=== PATIENT | female | born 1975 | race Caucasian/White ===

== ENCOUNTER 2018-12-12 09:20 | Day surgery (SDC) | payer MEDICARE, MEDICAID ==
[2018-12-10 16:34] LABS: BASOPHILS # (AUTO) 0.1 X10'3 (0-0.2); BASOPHILS % (AUTO) 0.9 % (0-1); EOSINOPHILS # (AUTO) 0.1 X10'3 (0-0.9); EOSINOPHILS % (AUTO) 1.2 % (0-6); LYMPHOCYTES # (AUTO) 1.4 X10'3 (1.1-4.8); MEAN CORPUSCULAR HEMOGLOBIN 26.1 PG (27.0-31.0); MEAN CORPUSCULAR HGB CONC 32.5 g/dL (33.0-36.5); MEAN CORPUSCULAR VOLUME 80.5 FL (78-98); MEAN PLATELET VOLUME 7.8 FL (7.4-10.4); MONOCYTES # (AUTO) 0.6 X10'3 (0-0.9); MONOCYTES % (AUTO) 9.7 % (2-12); NEUTROPHILS # (AUTO) 4.2 X10'3 (1.8-7.7); NEUTROPHILS % (AUTO) 66.2 % (42-75); PRE OP HEMATOCRIT 35.7 % (35.0-45.0); PRE OP HEMOGLOBIN 11.6 g/dL (12.0-16.0); PRE OP PLATELET COUNT 316 X10'3 (140-440); RED BLOOD COUNT 4.44 X10'6 (4.20-5.60); RED CELL DISTRIBUTION WIDTH 18.3 % (11.5-14.5)
[2018-12-10 16:45] LABS: ALBUMIN 3.5 G/DL (3.4-5.0); ALBUMIN/GLOBULIN RATIO 0.9 (1.1-1.5); ALKALINE PHOSPHATASE 77 IU/L (46-116); BLOOD UREA NITROGEN 11 MG/DL (7-18); BUN/CREATININE RATIO 17.7 (6.6-38.0); CALCIUM 8.9 MG/DL (8.5-10.1); CHLORIDE 103 MMOL/L (99-107); CREATININE 0.62 MG/DL (0.40-0.90); PRE OP ALT 16 U/L (30-65); PRE OP ANION GAP 8 (8-16); PRE OP AST 14 U/L (10-37); PRE OP BILIRUB, TOTAL 0.3 MG/DL (0.0-1.0); PRE OP GLUCOSE 103 MG/DL (70-104); PRE OP SODIUM 138 MMOL/L (135-145); TOTAL PROTEIN 7.2 G/DL (6.4-8.2); eGFR > 90 ML/MIN
[2018-12-10 16:46] LABS: PRE OP PROTIME 9.3 SECONDS (9.0-12.0)
[2018-12-10 17:06] LABS: PRE OP POTASSIUM 3.3 MMOL/L (3.4-5.1)
[2018-12-10 17:38] LABS: PRE OP INR 0.9 INR
[~2018-12-12] VITALS: Ht 160 cm; Wt 63.5 kg
[~2018-12-12 09:20] MED LIST: BUPIVAcaine/PF 2.5mg/ml (0.25%) 10ml vial ONE; BUPR150T8 PO; HYDR-4353 PO; IXEK80SY3 SQ; LEVO150T62 PO; MELA3TAB64 PO; PANT-47 PO; ZOLP10TA5 PO; cefazolin/dext.iso 2gm/100 ML IV ONE; famotidine 20mg tablet PO ONE; ringers solution, lacted 1,000 ML IV SCH
[2018-12-12 10:00] VITALS: BP 110/82
[2018-12-12] MEDS ORDERED: LIDOcaine 0.5% (5mg/ml) 50ml vial ONE (10:51)
[2018-12-12] MEDS ORDERED: ringers solution, lacted 1,000 ML IV SCH (13:00)
[2018-12-12] MEDS ORDERED: meperidine/PF 25mg/ml syringe IV PRN ×3 (13:00)
[2018-12-12] MEDS ORDERED: proCHLORperazine 10 MG/2 ml inj IV PRN (13:00)
[2018-12-12] MEDS ORDERED: ondansetron/PF 4mg/2ml inj IV PRN (13:00)
[2018-12-12] MEDS ORDERED: fentaNYL/PF 50MCG/1 ML 2ML syringe ONE (13:11)
[2018-12-12] MEDS ORDERED: midazolam 2 mg/2 ml injection ONE ×3 (13:11→13:25)
[2018-12-12] MEDS ORDERED: propofol inj 20 ML IV ONE (13:48)
[2018-12-12 14:00] VITALS: BP 115/79
--- NOTE | 2018-12-12 14:00 | NUR ---
Received from OR via BED, accompanied by Anesthesiologist DR CHAVARRIA and report given by Anesthesiolgist. PATIENT A&OX4, DENIES PAIN, V/S WNL, NEUROVASCULAR CHECKS INTACT, 20G PIV RUE, SCD ON, DRESSING TO LEFT FINGER CDI ELEVATED WITH ICEBAG APPLIED.
[2018-12-12 14:10] VITALS: BP 121/76
[2018-12-12 14:20] VITALS: BP 124/73
[2018-12-12 14:30] VITALS: BP 127/74
--- NOTE | 2018-12-12 14:30 | NUR ---
PATIENT A&OX4, DENIES PAIN, V/S WNL, NEUROVASCULAR CHECKS INTACT, 20G PIV RUE D/C, SCD OFF, DRESSING TO LEFT MIDDLE FINGER CDI ELEVATED WITH ICEBAG APPLIED. I HAVE REVIEWED D/C INSTRUCTIONS WITH PATIENT AND FAMILY AND THEY HAVE VERBALIZED UNDERSTANDING. PATIENT D/C HOME WITH ALL BELONGINGS AND FAMILY GAVE TRANSPORT HOME.
== END 2018-12-12 14:30 | disposition home or self-care (01) ==
LOC: PAS 09:20
PROVIDERS: ATTEND Orthopaedic Surgery Hand Surgery
DX: M25.342 Other instability, left hand (principal); M20.012 Mallet finger of left finger(s); G47.00 Insomnia, unspecified; F41.9 Anxiety disorder, unspecified; L40.59 Other psoriatic arthropathy; Z88.5 Allergy status to narcotic agent; Z79.899 Other long term (current) drug therapy; Z98.890 Other specified postprocedural states; Z72.89 Other problems related to lifestyle; Z93.0 Tracheostomy status; Z79.01 Long term (current) use of anticoagulants
CPT/HCPCS: 26433; 36415; 80053; 82948; 85025; 85610; 85730; 93005; C1713; J2001; J2250; J2704; J3010; J3490; A4215; J7120

== ENCOUNTER 2024-02-13 08:25 | Day surgery (SDC) | payer MEDICARE, MEDICAID ==
[~2024-02-13] VITALS: Ht 160 cm; Wt 61.4 kg
[~2024-02-13 08:25] MED LIST changes: -BUPIVAcaine/PF 2.5mg/ml (0.25%) 10ml vial ONE; -BUPR150T8 PO; +HYDR-3686 PO; +HYDR-3972 PO; -HYDR-4353 PO; -LEVO150T62 PO; -MELA3TAB64 PO; -PANT-47 PO; +PANT40TA54 PO; -ZOLP10TA5 PO; -cefazolin/dext.iso 2gm/100 ML IV ONE; -famotidine 20mg tablet PO ONE; +levothyroxine; -ringers solution, lacted 1,000 ML IV SCH
[2024-02-13 08:35] VITALS: BP 152/107; PULSE 85; RESP 20
[2024-02-13] MEDS ORDERED: fentaNYL/PF 50MCG/1 ML 2ML syringe ONE (08:48)
[2024-02-13] MEDS ORDERED: propofol inj 20 ML IV ONE (08:49)
[2024-02-13] MEDS ORDERED: midazolam 1 mg/ML 2ml injection ONE (08:49)
[2024-02-13 09:40] VITALS: BP 120/85; PULSE 66; RESP 10; O2SAT 100
[2024-02-13 09:50] VITALS: BP 135/92; PULSE 62; RESP 10; O2SAT 100
[2024-02-13 10:00] VITALS: BP 141/92; PULSE 59; RESP 14; O2SAT 100
[2024-02-13 10:10] VITALS: BP 127/83; PULSE 60; RESP 11; O2SAT 99
== END 2024-02-13 10:20 | disposition home or self-care (01) ==
LOC: GI LAB 08:25
PROVIDERS: ATTEND Internal Medicine Gastroenterology
DX: Z12.11 Encounter for screening for malignant neoplasm of colon (principal); K57.30 Diverticulosis of large intestine without perforation or abscess without bleeding; E89.0 Postprocedural hypothyroidism; E11.9 Type 2 diabetes mellitus without complications; K21.9 Gastro-esophageal reflux disease without esophagitis; M19.90 Unspecified osteoarthritis, unspecified site; Z85.89 Personal history of malignant neoplasm of other organs and systems; Z86.73 Personal history of transient ischemic attack (TIA), and cerebral infarction without residual deficits; Z79.890 Hormone replacement therapy; Z79.891 Long term (current) use of opiate analgesic; Z79.899 Other long term (current) drug therapy; Z98.891 History of uterine scar from previous surgery; Z98.84 Bariatric surgery status; Z98.890 Other specified postprocedural states; Z88.5 Allergy status to narcotic agent
CPT/HCPCS: G0121; J2250; J2704; J3010; J7030; Z7512; 45378